=== PATIENT | male | born 1975 | race Caucasian/White ===

== ENCOUNTER 2017-11-04 13:55 | Emergency (ER) | payer SELFPAY ==
[~2017-11-04] VITALS: Ht 175.3 cm; Wt 110.0 kg
[~2017-11-04 13:55] MED LIST: ACET-2178 PO; IBUP-2030 PO
[2017-11-04 14:02] VITALS: BP 131/74
== END 2017-11-04 15:45 | disposition left against medical advice (07) ==
LOC: ER 13:55
DX: Z53.21 Procedure and treatment not carried out due to patient leaving prior to being seen by health care provider (principal)